=== PATIENT | male | born 1990 | race Caucasian/White ===

== ENCOUNTER 2016-05-17 23:19 | Emergency (ER) | payer MEDICAID ==
[~2016-05-17 23:19] MED LIST: OLANZapine 10 MG VIAL IM ONE
[2016-05-17] MEDS ORDERED: WATER FOR INJECTION,STERILE 10 ML ONE (23:20)
[2016-05-17] MEDS ORDERED: OLANZapine 10 MG VIAL IM STA (23:22)
[2016-05-18] MEDS ORDERED: POTASSIUM BICARB 25 MEQ TABLET PO STA (05:14)
[2016-05-18] MEDS ORDERED: POTASSIUM BICARB 25 MEQ TABLET PO ONE (05:30)
== END 2016-05-18 07:39 | disposition home or self-care (01) ==
DX: F43.21 Adjustment disorder with depressed mood (principal); T14.91 Suicide attempt; F10.129 Alcohol abuse with intoxication, unspecified; R45.1 Restlessness and agitation; Z78.1 Physical restraint status
CPT/HCPCS: 36415; 80053; 80306; 80307; 80320; 80329; 81001; 83690; 85025; 96372; 99284; A9270

== ENCOUNTER 2016-05-20 18:21 | Emergency (ER) | payer MEDICAID | END 2016-05-20 23:09 | disposition home or self-care (01) | DX: F32.9 Major depressive disorder, single episode, unspecified (principal); R45.851 Suicidal ideations ==

== ENCOUNTER 2016-08-07 17:10 | Emergency (ER) | payer MEDICAID ==
[2016-08-07] MEDS ORDERED: predniSONE 20 MG TABLET PO STA (19:11)
[2016-08-07] MEDS ORDERED: diphenhydrAMINE 25 MG CAPSULE PO STA (19:11)
[2016-08-07] MEDS ORDERED: FAMOTIDINE 20 MG TABLET PO STA (19:11)
[2016-08-07] MEDS ORDERED: diphenhydrAMINE 25 MG CAPSULE PO ONE (19:14)
[2016-08-07] MEDS ORDERED: FAMOTIDINE 20 MG TABLET ONE (19:15)
[2016-08-07] MEDS ORDERED: predniSONE 20 MG TABLET ONE (19:15)
== END 2016-08-07 19:34 | disposition home or self-care (01) ==
DX: L50.0 Allergic urticaria (principal)
CPT/HCPCS: 99283; A9270; J7512

== ENCOUNTER 2018-12-28 10:00 | Outpatient (CLI) | payer MEDICAID | END 2018-12-28 10:01 | disposition critical access hospital (66) | LOC: EMS 10:00 | PROVIDERS: ATTEND Surgery | DX: M54.2 Cervicalgia (principal); V43.52XA Car driver injured in collision with other type car in traffic accident, initial encounter; Y92.413 State road as the place of occurrence of the external cause | CPT/HCPCS: A0425; A0429; A0999 ==